=== PATIENT | male | born 1955 | race Caucasian/White ===

== ENCOUNTER 2016-08-12 13:05 | Emergency (ER) | payer OTHER, BC ==
[2016-08-12 13:13] VITALS: BP 125/70; PULSE 79; TEMP 98; BMI 25.1
--- NOTE | 2016-08-12 14:22 | PDOC ---
History of Present Illness - General Stated Complaint: BLEEDING VARICOSE VEIN Time Seen by Provider: 08/12/16 13:49 History Source: Patient Exam Limitations: No Limitations - History of Present Illness Initial Comments: CHIEF COMPLAINT: 60 y/o afebrile male with no significant PMH c/o right ankle abrasion with bleeding HISTORY OF PRESENT ILLNESS: The patient states after spin class this afternoon he noticed his right ankle was bleeding. He states the bleeding seemed to be a constant stream so he applied pressure and came here. He denies trauma to the area, pain, swelling, redness to affected area. The patient is not on a blood thinner and denies pulsating bleed. Vital signs on arrival are within normal limits. REVIEW OF SYSTEMS: GENERAL/CONSTITUTIONAL: No fever/chills. No weakness. No weight change. HEAD, EYES, EARS, NOSE AND THROAT: No change in vision. No ear pain or discharge. No sore throat. CARDIOVASCULAR: No chest pain or shortness of breath. RESPIRATORY: No cough, wheezing, or hemoptysis. MUSCULOSKELETAL:+bleeding abrasion to right ankle. No neck or back pain. SKIN: No rash or easy bruising. NEUROLOGIC: No headache, vertigo, loss of consciousness, or loss of sensation. HEMATOLOGIC/LYMPHATIC: No anemia, easy bleeding, or history of blood clots. PHYSICAL EXAM: VITAL_SIGNS: within normal limits GENERAL_APPEARANCE: alert, cooperative, no obvious discomfort. MENTAL_STATUS: speech clear, oriented X 3, responds appropriately to questions. NEURO: motor intact and sensory intact in injured extremity. EXTREMITIES: good pulse in injured extremity; small 0.25cm in diameter abrasion that has clotted on right medial malleolus. No active bleeding. SKIN: warm, dry, good color. Past History - Past Medical History Allergies/Adverse Reactions: Allergies Allergy/AdvReac Type Severity Reaction Status Date / Time Penicillins Allergy Unverified 08/12/16 13:14 Sulfa (Sulfonamide Allergy Unverified 08/12/16 13:14 Antibiotics) [Sulfa(Sulfonamide Antibiotics)] Home Medications: Ambulatory Orders Levothyroxine [Synthroid -] 112 mcg PO DAILY 08/12/16 Pantoprazole Sodium [Protonix -] 20 mg PO DAILY 08/12/16 Thyroid Disease: Yes - Surgical History Abdominal Surgery: Yes (HERNIA) - Psycho/Social/Smoking Cessation Hx Suicidal Ideation: No Smoking History: Never smoked Information on smoking cessation initiated: No *Physical Exam - Vital Signs Last Vital Signs Temp Pulse Resp BP Pulse Ox 98 F 79 18 125/70 99 08/12/16 13:11 08/12/16 13:11 08/12/16 13:11 08/12/16 13:11 08/12/16 13:11 Medical Decision Making - Medical Decision Making A/P: 60 y/o afebrile male with superficial bleeding wound on right ankle that has started to heal on its own. NO active bleeding currently. Most likely his cycling shoes caused the abrasion. CLeaned the wound and redressed. Suggested he avoid rubbing the area and if it starts to bleed again hold pressure and elevate. The patient verbalizes understanding of all instructions, has no further questions and is awaiting discharge. *DC/Admit/Observation/Transfer Diagnosis at time of Disposition: Skin tear of right lower leg without complication Qualifiers: Encounter type: initial encounter Qualified Code(s): S81.801A - Unspecified open wound, right lower leg, initial encounter - Discharge Dispostion Disposition: HOME Condition at time of disposition: Good - Referrals Referrals: Zeyad Peacock MD [Primary Care Provider] - Call tomorrow - Patient Instructions Printed Discharge Instructions: DI for Abrasion, DI for Minor Laceration Additional Instructions: Discharge Instructions: -If bleeding starts again, elevate the area and apply pressure -Avoid rubbing the affected area -Follow up with your doctor within 1 week -Return to the ER with any worsening or concerning symptoms
== END 2016-08-12 15:00 | disposition home or self-care (01) ==
LOC: JER 13:05
DX: S81.801A Unspecified open wound, right lower leg, initial encounter (principal); W22.8XXA Striking against or struck by other objects, initial encounter; Y93.B1 Activity, exercise machines primarily for muscle strengthening; Y92.39 Other specified sports and athletic area as the place of occurrence of the external cause; Y99.8 Other external cause status
CPT/HCPCS: 99283-25